=== PATIENT | female | born 1995 | race Caucasian/White ===

== ENCOUNTER 2016-06-24 00:58 | Emergency (ER) | payer MEDICAID ==
[~2016-06-24] VITALS: Ht 165.1 cm; Wt 50.0 kg
[2016-06-24 01:15] VITALS: BP 113/81; PULSE 66; RESP 14; TEMP 98; O2SAT 97
[2016-06-24] MEDS ORDERED: SODIUM CHLOR 0.9% 1000 ML INJ 1,000 ML IV SCH (01:20)
[2016-06-24] MEDS ORDERED: ONDANSETRON HCL 4 MG/2 ML VIAL IV PUSH ONE (01:30)
[2016-06-24] MEDS ORDERED: SODIUM CHLORIDE 0.9% FLUSH 5 ML FLUSH IVF PRN (01:30)
--- NOTE | 2016-06-24 01:34 | PD ---
HPI Chief Complaint: Alcohol/Drug Intoxication Time Seen by Provider: 01:12 Travel History International Travel<30 days: No (unable to assess) Contact w/Intl Traveler<30days: No History of Present Illness HPI The patient's a 21-year-old female brought in by EMS due to alcohol intoxication. Due to severe alcohol intoxication the history upon arrival is limited. Multiple episodes of vomiting were observed by EMS. She received Zofran en route to the ER as well as a few 100 cc of saline. [facility] Past Medical History Medical History: Unable to Obtain ?: Unknown Past Surgical History Surgical History: Unable to Obtain Social History Alcohol Use: Yes Tobacco Use: No (not determined upon arrival 2/2 etoh intox) Allergies-Medications (Allergen,Severity, Reaction): Coded Allergies: UNOBTAINABLE (Unverified , 06/24/16) Reported Meds & Prescriptions Reported Meds & Active Scripts Active Active Prescriptions or Reported Medications Unobtainable Review of Systems ROS Limitations: Clinical Condition Physical Exam Narrative GENERAL: 21-year-old female, emesis about close that here, EtOH and odor vomit about breath SKIN: Warm and dry. HEAD: Atraumatic. Normocephalic. EYES: Disconjugate gaze. Pupils equal and reactive to light. ENT: No nasal bleeding or discharge. Mucous membranes pink and moist. NECK: Trachea midline. No JVD. CARDIOVASCULAR: Regular rate and rhythm. No murmur appreciated. RESPIRATORY: No accessory muscle use. Clear to auscultation. Breath sounds equal bilaterally. GASTROINTESTINAL: Abdomen soft, non-tender, nondistended. Hepatic and splenic margins not palpable. MUSCULOSKELETAL: No obvious deformities. No clubbing. No cyanosis. No edema. NEUROLOGICAL: GCS of about 6 (motor 4, eyes 1, verbal 1). PSYCHIATRIC: EtOH on breath. Data Data Last Documented VS Orders Alcohol (Ethanol) (06/24/16 01:20) Complete Blood Count With Diff (06/24/16 01:20) Comprehensive Metabolic Panel (06/24/16 01:20) Blood Glucose (06/24/16 01:20) Ecg Monitoring (06/24/16 01:20) Iv Access Insert/Monitor (06/24/16 01:20) Oximetry (06/24/16 01:20) Sodium Chloride 0.9% Flush (Ns Flush) (06/24/16 01:30) Sodium Chlor 0.9% 1000 Ml Inj (Ns 1000 M (06/24/16 01:20) Ondansetron Inj (Zofran Inj) (06/24/16 01:30) Labs Laboratory Tests Test 06/26/16 21:12 Lab Scanned Report Lab Reports - Other [id number] [facility] Medical Decision Making Medical Screen Exam Complete: Yes Emergency Medical Condition: Yes Medical Record Reviewed: Yes Differential Diagnosis Alcohol intoxication, alcoholic ketoacidosis, vomiting, electrolyte imbalance Narrative Course The patient will be observed here until she is clinically sober. When an adult farmworkers is present to bring her home she may leave. CBC & BMP Diagram 06/24/16 01:30 LFTs are within acceptable limits The alcohol level is 234 Patient reassessed multiple times. At 4:50 AM multiple sober chaperones are here to take the patient home. She has been ambulatory w normal gate in the pod to and from the bathroom a few times and now speaks clearly with clear memory and mentation. Friends and patient report she drank multiple alcoholic beverages tonight however lost count prior to arrival. She is safe for discharge. Diagnosis Primary Impression: Alcohol intoxication Qualified Code: F10.129 - Alcohol intoxication, with unspecified complication Additional Impressions: Vomiting Qualified Code: R11.10 - Non-intractable vomiting, presence of nausea not specified, unspecified vomiting type Altered mental status Qualified Code: R40.1 - Stupor Referrals: [facility] 2 days Additional Instructions: You have a choice when it comes to health care, and we are glad that you chose [facility]. Hopefully, we have met your expectations on today's visit. You are welcome to return to [facility] at any time, as we are committed to meeting the health care needs of our community. Med/Other Pt SpecificInfo: No Change to Meds Scripts Unable to Obtain Active Prescriptions or Reported Meds Disposition: DISCHARGE HOME Condition: Stable Jerry Layne MD Jun 24, 2016 01:34 Carbon Dioxide Level 22.8 MEQ/L Anion Gap 9 MEQ/L Blood Urea Nitrogen 11 MG/DL Creatinine 0.53 MG/DL Estimat Glomerular Filtration 147 ML/MIN Rate Random Glucose 130 MG/DL Calcium Level 7.9 MG/DL Total Bilirubin 0.2 MG/DL Aspartate Amino Transf 10 U/L (AST/SGOT) Alanine Aminotransferase 22 U/L (ALT/SGPT) Alkaline Phosphatase 44 U/L Total Protein 6.5 GM/DL Albumin 3.8 GM/DL Ethyl Alcohol Level 234 MG/DL [facility] Medical Decision Making Medical Screen Exam Complete: Yes Emergency Medical Condition: Yes Medical Record Reviewed: Yes Differential Diagnosis Alcohol intoxication, alcoholic ketoacidosis, vomiting, electrolyte imbalance Narrative Course The patient will be observed here until she is clinically sober. When an adult farmworkers is present to bring her home she may leave. CBC & BMP Diagram 06/24/16 01:30 LFTs are within acceptable limits The alcohol level is 234 Patient reassessed multiple times. At 4:50 AM multiple sober chaperones are here to take the patient home. She has been ambulatory in the pod. She is safe for discharge. Diagnosis Primary Impression: Alcohol intoxication Qualified Code: F10.129 - Alcohol intoxication, with unspecified complication Additional Impressions: Vomiting Qualified Code: R11.10 - Non-intractable vomiting, presence of nausea not specified, unspecified vomiting type Altered mental status Qualified Code: R40.1 - Stupor Referrals: [facility] 2 days Additional Instructions: You have a choice when it comes to health care, and we are glad that you chose [facility]. Hopefully, we have met your expectations on today's visit. You are welcome to return to [facility] at any time, as we are committed to meeting the health care needs of our community. Med/Other Pt SpecificInfo: No Change to Meds Scripts Unable to Obtain Active Prescriptions or Reported Meds Disposition: 01 DISCHARGE HOME Condition: Stable Jerry Layne MD Jun 24, 2016 01:34
[2016-06-24 01:37] LABS: AUTOMATED NEUTROPHIL # 6.3 TH/MM3 (1.8-7.7); BASOPHIL # 0.1 TH/MM3 (0-0.2); BASOPHIL % 0.6 % (0.0-2.0); EOSINOPHIL # 0.1 TH/MM3 (0-0.4); HEMATOCRIT 33.8 % (35.0-46.0); HEMO FLAGS DIFF FINAL; LYMPH % 29.5 % (9.0-44.0); LYMPHOCYTE # 3.1 TH/MM3 (1.0-4.8); MEAN CELL VOLUME 84.2 FL (80.0-100.0); MEAN CORPUSCULAR HEMOGLOBIN 29.3 PG (27.0-34.0); MEAN CORPUSCULAR HGB CONC 34.8 % (32.0-36.0); MONO % 7.7 % (0.0-8.0); NEUT % 61.2 % (16.0-70.0); PLATELET COUNT 284 TH/MM3 (150-450); RED BLOOD COUNT 4.02 MIL/MM3 (4.00-5.30); RED CELL DISTRIBUTION WIDTH 13.2 % (11.6-17.2); WHITE BLOOD COUNT 10.4 TH/MM3 (4.0-11.0)
[2016-06-24 02:00] LABS: ALT (GPT) 22 U/L (9-42); ANION GAP 9 MEQ/L (5-15); AST (GOT) 10 U/L (16-38); BICARBONATE 22.8 MEQ/L (21.0-32.0); BLOOD UREA NITROGEN 11 MG/DL (7-18); CHLORIDE 111 MEQ/L (98-107); GLOMERULAR FILTRATION RATE 147 ML/MIN (>89); POTASSIUM 3.6 MEQ/L (3.5-5.1); SODIUM (NA) 143 MEQ/L (136-145)
[2016-06-24 02:03] LABS: ALKALINE PHOSPHATASE 44 U/L (45-117); TOTAL BILIRUBIN ADULT 0.2 MG/DL (0.2-1.0)
== END 2016-06-24 04:59 | disposition home or self-care (01) ==
LOC: NEPC 00:58
DX: F10.129 Alcohol abuse with intoxication, unspecified (principal); R11.2 Nausea with vomiting, unspecified
CPT/HCPCS: 80053; 80320; 85025; 96374; 99284; J2405; J7030